=== PATIENT | female | born 1985 | race Caucasian/White ===

== ENCOUNTER 2023-05-04 22:50 | Inpatient (IN) | payer OTHER, SELFPAY ==
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
[2023-05-04] MEDS: Haloperidol Lactate 5 MG/ML VIAL IM (23:10)
[2023-05-04] MEDS: diphenhydrAMINE HCL 50 MG/ML VIAL IM (23:10)
[2023-05-04] MEDS: Ziprasidone Mesylate 20 MG VIAL IM (23:10)
[2023-05-04 23:21] VITALS: RESP 18; BMI 26.6
[2023-05-05 00:05] VITALS: BP 120/82; PULSE 82; RESP 18; O2SAT 100
--- NOTE | 2023-05-05 00:10 | MHC.EDTECH ---
delayed lab draw due to chemical restraint. when t/w attempted to obtain labs pt stated she was too dizzy and needs rest. RN MADE AWARE.
[2023-05-05 00:15] LABS: Appearance Urine Clear; Color Urine Yellow; Glucose Urine UA Negative (Negative); Leukocyte Esterase Urine Negative (Negative); Nitrite Urine Negative (Negative); PH 5.5 (5.0-9.0); Specific Gravity - Urine <= 1.005 (1.005-1.025); UMIC TRIGGER UACC YES; Urine Blood Small (1+) (Negative); Urine Ketones Negative (Negative); Urine Protein Negative (Neg-Trace)
--- NOTE | 2023-05-05 00:16 | MHC.EDTECH ---
backpack added to belonings list, placed in locker #1 with the rest of pts belongings
[2023-05-05 00:22] LABS: Amphetamine Screen Urine Not Detected (Not Detect); Barbiturates, Urine Not Detected (Not Detect); Benzodiazepines Screen Urine Not Detected (Not Detect); Cannabinoid Screen Urine Not Detected (Not Detect); Cocaine Screen Urine Not Detected (Not Detect); Fentanyl, urine Not Detected (Not Detect); Opiate Screen Urine Not Detected (Not Detect); Phencyclidine Screen Urine Not Detected (Not Detect)
[2023-05-05 00:31] LABS: Bacteria Urine 3+ (None Seen); RBC Urine 0-2 /HPF (0-2); UACC Culture Trigger YES
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
--- NOTE | 2023-05-05 07:28 | PC.NURSE ---
patient awake, agreeable to blood work after eating breakfast.
[2023-05-05 08:04] LABS: MANUAL DIFF FLAG NO
[2023-05-05 08:11] LABS: Basophils Absolute Auto 0.1 X10*3/uL (0.0-0.2); Basophils Percent Auto 0.8 % (0-2); Eosinophils Absolute Auto 0.4 X10*3/uL (0.0-0.4); Eosinophils Percent Auto 4.8 % (0-4); Hematocrit 43.7 % (37.0-47.0); Imm Gran Abs Auto 0.02 X10*3/uL (0.00-0.03); Imm Gran Pct Auto 0.2 % (0.0-0.4); Lymphocytes Absolute Auto 2.1 X10*3/uL (1.2-4.9); Lymphocytes Percent Auto 25.5 % (20-40); Mean Corpuscular HGB Conc 34.3 g/dl (31.0-35.0); Mean Corpuscular Hemoglobin 33.4 pg (27.0-33.0); Mean Corpuscular Volume 97.3 fL (80.0-98.0); Mean Platelet Volume 10.4 fL (9.4-12.3); Monocytes Absolute Auto 0.7 X10*3/uL (0.1-1.2); Monocytes Percent Auto 8.1 % (2-11); Neutrophils Percent Auto 60.6 % (45-73); Platelet Count 249 X10*3/uL (160-400); Red Blood Count 4.49 X10*6/uL (4.20-5.50); Red Cell Distribution Width 12.3 % (11.0-16.0); White Blood Count 8.3 X10*3/uL (4.8-10.8)
--- NOTE | 2023-05-05 08:22 | PC.NURSE ---
patient stating her car is low on gas and parked on [facility]. requesting numbers for a tow truck to move her car to a different location. stating she wants to go home and sleep in her own bed. made aware of staffing issues preventing a SA kit from being obtained, stating she will go to a clinic upon discharge.
[2023-05-05 08:31] LABS: Alanine Aminotransferase 15 U/L (0-31); Albumin Level 4.2 g/dL (3.5-5.0); Alkaline Phosphatase 80 U/L (39-117); Anion Gap 10 (12-20); Aspartate Amino Transferase 22 U/L (5-31); Bilirubin Direct 0.2 mg/dL (0.0-0.5); Bilirubin Total 0.5 mg/dL (0.0-1.0); Blood Urea Nitrogen 8 mg/dL (9-16); Calcium 9.1 mg/dL (8.4-10.2); Carbon Dioxide 27 mmol/L (22-29); Chloride 106 mmol/L (96-108); Creatinine Clr Calc Pharmacy 94.1; Estimated Glomerular Filt Rate > 60; Ethanol < 10 mg/dL; Glucose Random 75 mg/dL (60-115); HCG Quantitative < 2 mIU/mL; Potassium 3.3 mmol/L (3.3-5.1); Sodium 140 mmol/L (135-145); Total Protein 6.9 g/dL (6.5-8.0)
[2023-05-05 10:23] VITALS: BP 142/87; PULSE 97; TEMP 36.6; O2SAT 100
--- NOTE | 2023-05-05 11:07 | PC.NURSE ---
patient's father called to give update on patient's past history w/ mental health. Pastor [phone].
--- NOTE | 2023-05-05 11:48 | PC.NURSE ---
call placed to [facility] to complete med rec
[2023-05-05 12:12] LABS: COVID-19 Test Negative (Negative); IDNOW Serial# 08D9AD1C
[2023-05-05 15:47] VITALS: BP 158/100; PULSE 129; RESP 18; TEMP 36.7; O2SAT 99
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
--- NOTE | 2023-05-06 13:16 | PC.NURSE ---
pt is guarded and will not respond to this repairer typewriter when asked if she is a current smoker.
[2023-05-06] MEDS: LORazepam 1 MG TABLET 2 MG PO ×2 (14:46→15:49)
[2023-05-06 16:50] VITALS: BP 129/68; PULSE 103; RESP 16; TEMP 36.5; O2SAT 98
--- NOTE | 2023-05-06 22:24 | PC.NURSE ---
pt refused to wake for evening medication ([place]rum and Ativan). Respirations even and unlabored.
[2023-05-07 08:20] VITALS: BP 141/79; PULSE 121; RESP 18; TEMP 36.3; O2SAT 100
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
[2023-05-07 18:30] VITALS: BP 141/87; PULSE 100; RESP 18; TEMP 36.8; O2SAT 99
[2023-05-07] MEDS: Acetaminophen 325 MG TABLET 650 MG PO (18:54)
[2023-05-07] MEDS: Melatonin 3 MG TABLET 9 MG PO ×2 (20:51→23:36)
[2023-05-07] MEDS: hydrOXYzine HCL 25 MG TABLET PO (23:37)
[2023-05-08 06:00] VITALS: BP 148/84; PULSE 95; RESP 17; TEMP 36.6; O2SAT 99
[2023-05-08 08:22] LABS: Glucose, Whole Blood 104 mg/dL (60-115)
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
[2023-05-08] MEDS: Magnesium Hydrox/Alum Hydrox 30 ML ORAL.SUSP PO (12:53)
[2023-05-08 20:00] VITALS: BP 173/82; PULSE 88; RESP 16; TEMP 36.3; O2SAT 100
[2023-05-08] MEDS: LORazepam 1 MG TABLET 2 MG PO (20:44)
[2023-05-08] MEDS: Melatonin 3 MG TABLET 9 MG PO (20:45)
[2023-05-08 21:31] VITALS: BP 151/85
[2023-05-09] MEDS: LORazepam 1 MG TABLET 2 MG PO ×3 (09:50→23:04)
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
--- NOTE | 2023-05-09 12:11 | PC.NURSE ---
pt accepted scheduled ativan and vitamins but refused lithium. Pt does well when meds are ready to go and handed directly to her and told Here is your medication for you to take .
[2023-05-09 18:00] VITALS: BP 122/72; PULSE 76; TEMP 36.8
[2023-05-09] MEDS: Melatonin 3 MG TABLET 9 MG PO (23:06)
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
[2023-05-10 08:43] VITALS: BP 113/66; PULSE 75; RESP 16; TEMP 36.7; O2SAT 100
[2023-05-10] MEDS: LORazepam 1 MG TABLET 2 MG PO ×3 (08:49→22:01)
[2023-05-10 19:40] VITALS: BP 132/79; PULSE 83; TEMP 36.6
[2023-05-10] MEDS: Melatonin 3 MG TABLET 9 MG PO (21:59)
[2023-05-11 08:25] VITALS: BP 129/89; PULSE 79; RESP 16; TEMP 36.6; O2SAT 100
[2023-05-11] MEDS: LORazepam 1 MG TABLET 2 MG PO ×3 (08:40→20:19)
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
[2023-05-11] MEDS: Melatonin 3 MG TABLET 9 MG PO (20:20)
[2023-05-11 20:25] VITALS: BP 123/59; PULSE 91; RESP 14; TEMP 36.4; O2SAT 99
[2023-05-12 08:26] VITALS: BP 141/60; PULSE 100; RESP 16; TEMP 36.9; O2SAT 100
[2023-05-12] MEDS: LORazepam 1 MG TABLET 2 MG PO ×3 (08:32→21:11)
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
[2023-05-12 18:00] VITALS: BP 124/71; PULSE 89; RESP 18; TEMP 36.8; O2SAT 99
[2023-05-12] MEDS: Melatonin 3 MG TABLET 9 MG PO (21:12)
[2023-05-13 08:12] VITALS: BP 115/62; PULSE 88; RESP 16; TEMP 36.8; O2SAT 100
[2023-05-13] MEDS: LORazepam 1 MG TABLET 2 MG PO (08:57)
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
== END 2023-05-13 11:55 | disposition home or self-care (01) | DRG 753 ==
LOC: HO.ED 05-05 08:16 → HO.PM5 05-05 14:47
PROVIDERS: Admitting Provider Psychiatry & Neurology Psychiatry; Emergency Provider Emergency Medicine; PCP Family Medicine; Visit Provider Psychiatry & Neurology Psychiatry
DX: F31.10 Bipolar disorder, current episode manic without psychotic features, unspecified (principal); Z91.148 Patient's other noncompliance with medication regimen for other reason; Z20.822 Contact with and (suspected) exposure to COVID-19; Z79.899 Other long term (current) drug therapy
CPT/HCPCS: 36415; 80048; 80076; 80307; 81001; 81003; 82947; 84702; 85025; 87086; 87635; 99285; J1200; J1630; J3486; S9485

== ENCOUNTER → 2023-05-05 14:40 | Outpatient (BNV) | payer OTHER, SELFPAY | PROVIDERS: Admitting Provider Psychiatry & Neurology Psychiatry; Emergency Provider Emergency Medicine; PCP Family Medicine; Visit Provider Clinical Nurse Specialist Psychiatric/Mental Health, Adult | DX: F31.10 Bipolar disorder, current episode manic without psychotic features, unspecified (principal); F06.1 Catatonic disorder due to known physiological condition | CPT/HCPCS: 90792; 99231; 99232; 99238 ==